=== PATIENT | female | born 1975 | race Caucasian/White ===

== ENCOUNTER → 2018-08-06 12:21 | Outpatient (CLI) | payer OTHER, SELFPAY ==
--- NOTE | 2018-08-06 | DI.MG.S_ITS ---
BILATERAL DIGITAL SCREENING MAMMOGRAM 3D/2D WITH CAD: 08/06/2018 CLINICAL: Routine screening. Comparison is made to exams dated: 03/13/2017 mammogram and 03/05/2016 mammogram - [facility]. The tissue of both breasts is heterogeneously dense. This may lower the sensitivity of mammography. Current study was also evaluated with a Computer Aided Detection (CAD) system. No significant masses, calcifications, or other findings are seen in either breast. There has been no significant interval change. IMPRESSION: NEGATIVE There is no mammographic evidence of malignancy. A 1 year screening mammogram is recommended. This exam was interpreted at Station ID: [id number]. NOTE: For mammograms, a report in lay terms will be sent to the patient. Approximately 15% of breast malignancies will not be visualized mammographically. In the management of a palpable breast mass, a negative mammogram must not discourage biopsy of a clinically suspicious lesion. Electronically Signed By: Tima curtis/aminata:08/08/2018 20:59:06 letter sent: Normal Exam ACR BI-RADS Category 1: Negative 3341F
== END ==
PROVIDERS: PCP Family Medicine; Visit Provider Family Medicine
DX: Z12.31 Encounter for screening mammogram for malignant neoplasm of breast (principal)
CPT/HCPCS: 77063; 77067

== ENCOUNTER → 2019-08-23 15:57 | Outpatient (CLI) | payer OTHER, SELFPAY ==
[2019-08-23 16:57] LABS: Add Manual Diff / Slide Review NO; Basophils Absolute Auto 100 /uL (0-100); Basophils Percent Auto 1.1 % (0-2); Eosinophils Absolute Auto 0 /uL (0-450); Eosinophils Percent Auto 0.5 % (2-4); Hematocrit 40.7 % (36-46); Hemoglobin 13.6 g/dL (12.0-16.0); Lymphocytes Absolute Auto 1700 /uL (1100-4500); Lymphocytes Percent Auto 20.6 % (25-40); Mean Corpuscular HGB Conc 33.4 % (30-36); Mean Corpuscular Hemoglobin 29.9 PG (26-34); Mean Corpuscular Volume 89.6 fL (80-100); Monocytes Absolute Auto 500 /uL (0-900); Monocytes Percent Auto 6.4 % (3-14); Neutrophils Absolute Auto 5800 /uL (1500-7000); Neutrophils Percent Auto 71.4 % (50-75); Platelet Count 283 X10^3/uL (150-400); Red Blood Cell Count 4.54 X10^6/uL (4.0-5.2); Red Cell Distribution Width 13.4 % (11.6-14.8); White Blood Cell Count 8.1 X10^3/uL (4.5-11.0)
[2019-08-23 16:59] LABS: Alanine Aminotransferase 12 IU/L (9-52); Albumin 4.7 g/dL (3.5-5.0); Albumin Globulin Ratio 1.2 (1.0-2.8); Alkaline Phosphatase 63 U/L (38-126); Aspartate Aminotransferase 24 IU/L (14-36); BUN Creatinine Ratio 17.1 (6-22); Bilirubin Total 0.4 mg/dL (0.2-1.3); Blood Urea Nitrogen 12 mg/dL (7-17); Calcium 9.3 mg/dL (8.4-10.2); Carbon Dioxide 26 mmol/L (22-32); Chloride 104 mmol/L (98-107); Creatine Kinase 76 U/L (30-135); Estimated Glomerular Filt Rate > 60.0 mL/min (>60); Globulin 3.8 g/dL (1.7-4.1); Glucose 92 mg/dL (70-100); Lipase 94 U/L (23-300); Sodium 140 mmol/L (137-145); Total Protein 8.5 g/dL (6.3-8.2)
[2019-08-23 17:11] LABS: HEMOLYSIS < 15 (0-50)
[2019-08-23 17:15] LABS: C-Reactive Protein Quant < 0.5 mg/dL (<1.0)
[2019-08-23 17:41] LABS: Erythrocyte Sedimentation Rate 4 MM/HR (0-20)
[2019-08-23 18:54] LABS: Rheumatoid Factor < 8.6 IU/mL (<12.0)
[2019-08-25 17:38] LABS: Urea Breath Test >18YRS NOT DETECTED
[2019-08-27 09:35] LABS: ANA Screen, IFA NEGATIVE (NEGATIVE)
== END ==
PROVIDERS: PCP Family Medicine; Visit Provider Family Medicine
DX: R10.13 Epigastric pain (principal); I73.00 Raynaud's syndrome without gangrene
CPT/HCPCS: 36415; 80053; 82550; 83013; 83690; 84443; 85025; 85651; 86038; 86140; 86430

== ENCOUNTER → 2019-08-25 10:43 | Outpatient (CLI) | payer OTHER, SELFPAY ==
--- NOTE | 2019-08-25 10:45 | DI.US.S_ITS ---
PROCEDURE: US ABDOMEN LIMITED INDICATIONS: EPIG ABD PAIN, PRIOR HX ABN HIDA TECHNIQUE: Real-time focused scanning was performed of the abdomen, with image documentation. COMPARISON: None. FINDINGS: Visualized liver demonstrates normal size and echotexture. Gallbladder is normal. No gallstones. No gallbladder wall thickening, pericholecystic fluid or sonographic Haddad's sign. Common bile duct measures a 3.8 mm in diameter, which is normal. Visualized pancreas is normal. IMPRESSION: Normal limited abdominal ultrasound exam. A cause for epigastric pain is not identified. Dictated by: Shaylee Flores M.D. on 08/25/2019 at 11:40 Approved by: Shaylee Flores M.D. on 08/25/2019 at 11:41
== END ==
PROVIDERS: PCP Family Medicine; Visit Provider Family Medicine
DX: R10.13 Epigastric pain (principal)
CPT/HCPCS: 76705

== ENCOUNTER → 2019-08-25 16:31 | Outpatient (CLI) | payer OTHER, SELFPAY ==
--- NOTE | 2019-08-25 16:32 | DI.MG.S_ITS ---
BILATERAL DIGITAL SCREENING MAMMOGRAM 3D/2D WITH CAD: 08/25/2019 CLINICAL: Routine screening. Comparison is made to exams dated: 08/06/2018 mammogram, 03/13/2017 mammogram, 03/05/2016 mammogram, and 03/12/2016 mammogram - [facility]. The tissue of both breasts is heterogeneously dense. This may lower the sensitivity of mammography. Current study was also evaluated with a Computer Aided Detection (CAD) system. No significant masses, calcifications, or other findings are seen in either breast. There has been no significant interval change. IMPRESSION: NEGATIVE There is no mammographic evidence of malignancy. A 1 year screening mammogram is recommended. This exam was interpreted at Station ID: [id number]. NOTE: For mammograms, a report in lay terms will be sent to the patient. Approximately 15% of breast malignancies will not be visualized mammographically. In the management of a palpable breast mass, a negative mammogram must not discourage biopsy of a clinically suspicious lesion. Electronically Signed By: Tima curtis/aminata:08/25/2019 17:24:34 letter sent: Normal Exam ACR BI-RADS Category 1: Negative 3341F
== END ==
PROVIDERS: PCP Family Medicine; Visit Provider Family Medicine
DX: Z12.31 Encounter for screening mammogram for malignant neoplasm of breast (principal)
CPT/HCPCS: 77063; 77067

== ENCOUNTER → 2019-10-12 16:12 | Outpatient (CLI) | payer OTHER, SELFPAY | PROVIDERS: PCP Family Medicine; Visit Provider Family Medicine | DX: R25.2 Cramp and spasm (principal) | CPT/HCPCS: 36415; 83735 ==

== ENCOUNTER → 2019-12-30 07:05 | Outpatient (CLI) | payer OTHER, SELFPAY ==
[2019-12-30 08:03] LABS: Cholesterol 221 mg/dL (140-199); Glucose 92 mg/dL (70-100); HDL Cholesterol 54 mg/dL (40-60); LDL Cholesterol Calculated 155 mg/dL (<100); Triglycerides 60 mg/dL (35-150)
== END ==
PROVIDERS: PCP Family Medicine; Visit Provider Family Medicine
DX: Z13.220 Encounter for screening for lipoid disorders (principal); Z13.1 Encounter for screening for diabetes mellitus
CPT/HCPCS: 36415; 80061; 82947

== ENCOUNTER → 2020-10-09 17:28 | Outpatient (CLI) | payer OTHER, SELFPAY ==
--- NOTE | 2020-10-09 | DI.MG.S_ITS ---
BILATERAL DIGITAL SCREENING MAMMOGRAM 3D/2D WITH CAD: 10/09/2020 CLINICAL: Routine screening. Comparison is made to exams dated: 08/25/2019 mammogram, 08/06/2018 mammogram, and 03/13/2017 mammogram - [facility]. The tissue of both breasts is heterogeneously dense. This may lower the sensitivity of mammography. Current study was also evaluated with a Computer Aided Detection (CAD) system. There are new linear fine calcifications in the right breast at 11 o'clock middle depth. No other significant masses, calcifications, or other findings are seen in either breast. IMPRESSION: INCOMPLETE: NEEDS ADDITIONAL IMAGING EVALUATION The new linear fine calcifications in the right breast are indeterminate. Magnification, lateromedial, and additional views are recommended. This exam was interpreted at Station ID: [id number]. NOTE: For mammograms, a report in lay terms will be sent to the patient. Approximately 15% of breast malignancies will not be visualized mammographically. In the management of a palpable breast mass, a negative mammogram must not discourage biopsy of a clinically suspicious lesion. Electronically Signed By: Chong resendez/aminata:10/10/2020 08:03:17 letter sent: Additional Imaging Needed ACR BI-RADS Category 0: Incomplete 3340F
== END ==
PROVIDERS: PCP Family Medicine; Referring Provider Family Medicine; Visit Provider Family Medicine
DX: Z12.31 Encounter for screening mammogram for malignant neoplasm of breast (principal)
CPT/HCPCS: 77063; 77067

== ENCOUNTER → 2020-11-05 14:01 | Outpatient (CLI) | payer OTHER, SELFPAY ==
--- NOTE | 2020-11-05 14:02 | DI.MG.S_ITS ---
UNILATERAL RIGHT DIGITAL DIAGNOSTIC MAMMOGRAM 3D/2D WITH ADDITIONAL VIEWS: 11/05/2020 CLINICAL: Additional evaluation requested from prior study. Comparison is made to exams dated: 10/09/2020 mammogram, 08/25/2019 mammogram, and 08/06/2018 mammogram - [facility]. The tissue of right breast is heterogeneously dense. This may lower the sensitivity of mammography. The benign calcification in the right breast at 11 o'clock middle depth is no longer seen. No other significant masses or calcifications are seen in the breast. IMPRESSION: BENIGN There is no mammographic evidence of malignancy. Return to annual mammogram screening schedule is recommended. This exam was interpreted at Station ID: [id number]. NOTE: For mammograms, a report in lay terms will be sent to the patient. Approximately 15% of breast malignancies will not be visualized mammographically. In the management of a palpable breast mass, a negative mammogram must not discourage biopsy of a clinically suspicious lesion. Electronically Signed By: Eduardo Nunn acr/:11/05/2020 14:40:44 letter sent: Normal Exam ACR BI-RADS Category 2: Benign Finding(s) 3342F
== END ==
PROVIDERS: PCP Family Medicine; Referring Provider Family Medicine; Visit Provider Family Medicine
DX: R92.8 Other abnormal and inconclusive findings on diagnostic imaging of breast (principal); R92.1 Mammographic calcification found on diagnostic imaging of breast
CPT/HCPCS: 77065; G0279

== ENCOUNTER → 2021-04-18 08:08 | Outpatient (CLI) | payer OTHER, SELFPAY ==
[2021-04-18 08:53] LABS: Cholesterol 191 mg/dL (140-199); Glucose 93 mg/dL (70-100); HDL Cholesterol 58 mg/dL (40-60); LDL Cholesterol Calculated 118 mg/dL (<100); Triglycerides 77 mg/dL (35-150)
== END ==
PROVIDERS: PCP Family Medicine; Referring Provider Family Medicine; Visit Provider Family Medicine
DX: Z13.1 Encounter for screening for diabetes mellitus (principal); Z13.220 Encounter for screening for lipoid disorders
CPT/HCPCS: 36415; 80061; 82947

== ENCOUNTER → 2021-10-14 14:45 | Outpatient (CLI) | payer OTHER, SELFPAY ==
--- NOTE | 2021-10-14 | DI.MG.S_ITS ---
BILATERAL DIGITAL SCREENING MAMMOGRAM 3D/2D WITH CAD: 10/14/2021 CLINICAL: Routine screening. Comparison is made to exams dated: 11/05/2020 mammogram, 10/09/2020 mammogram, and 08/25/2019 mammogram - [facility]. The tissue of both breasts is heterogeneously dense. This may lower the sensitivity of mammography. Current study was also evaluated with a Computer Aided Detection (CAD) system. No significant masses, calcifications, or other findings are seen in either breast. There has been no significant interval change. IMPRESSION: NEGATIVE There is no mammographic evidence of malignancy. A 1 year screening mammogram is recommended. This exam was interpreted at Station ID: [id number]. NOTE: For mammograms, a report in lay terms will be sent to the patient. Approximately 15% of breast malignancies will not be visualized mammographically. In the management of a palpable breast mass, a negative mammogram must not discourage biopsy of a clinically suspicious lesion. Electronically Signed By: Eduardo Nunn acr/penrad:10/14/2021 17:03:00 letter sent: Normal Exam ACR BI-RADS Category 1: Negative 3341F
== END ==
PROVIDERS: PCP Family Medicine; Referring Provider Family Medicine; Visit Provider Family Medicine
DX: Z12.31 Encounter for screening mammogram for malignant neoplasm of breast (principal)
CPT/HCPCS: 77063; 77067

== ENCOUNTER → 2022-11-07 07:25 | Outpatient (CLI) | payer OTHER, SELFPAY ==
--- NOTE | 2022-11-07 07:27 | DI.MG.S_ITS ---
BILATERAL DIGITAL SCREENING MAMMOGRAM 3D/2D WITH CAD: 11/07/2022 CLINICAL: Routine screening. Comparison is made to exams dated: 10/14/2021 mammogram, 11/05/2020 mammogram, 10/09/2020 mammogram, and 08/25/2019 mammogram - [facility]. Both breasts are heterogeneously dense, which may obscure small masses (category c / 51-75% glandular tissue). Current study was also evaluated with a Computer Aided Detection (CAD) system. No significant masses, calcifications, or other findings are seen in either breast. There has been no significant interval change. IMPRESSION: NEGATIVE There is no mammographic evidence of malignancy. A 1 year screening mammogram is recommended. Based on the Tyrer Cuzick model (a risk assessment model) the patient's lifetime risk is 8.9% and her 10 year risk is 2.0%. According to the ACR, ACS, and NCCN guidelines, an annual breast MRI exam along with mammogram is recommended if the patient's lifetime risk is 20% or greater. This exam was interpreted at Station ID: [id number]. NOTE: For mammograms, a report in lay terms will be sent to the patient. Approximately 15% of breast malignancies will not be visualized mammographically. In the management of a palpable breast mass, a negative mammogram must not discourage biopsy of a clinically suspicious lesion. Electronically Signed By: Dionne villavicencio/aminata:11/07/2022 12:55:30 letter sent: Normal Exam ACR BI-RADS Category 1: Negative 3341F
== END ==
PROVIDERS: PCP Family Medicine; Referring Provider Family Medicine; Visit Provider Family Medicine
DX: Z12.31 Encounter for screening mammogram for malignant neoplasm of breast (principal)
CPT/HCPCS: 77063; 77067

== ENCOUNTER → 2023-07-29 15:06 | Outpatient (CLI) | payer OTHER, SELFPAY ==
--- NOTE | 2023-07-29 15:07 | DI.RAD.S_ITS ---
PROCEDURE: XR THORACIC SPINE 3V INDICATIONS: mid back pain TECHNIQUE: 3 views of the thoracic spine were acquired. COMPARISON: None. FINDINGS: Bones: No fractures or dislocations. No suspicious bony lesions. There is 12.7 degree dextroscoliosis with the apex at T8-T9. Mild secondary levoscoliosis in the upper lumbar spine. Mild degenerative disc disease throughout the thoracic spine and upper lumbar spine. 11 pairs of ribs are noted, and appear intact where visualized. Soft tissues: No paravertebral stripe thickening. IMPRESSION: 1. Mild degenerative disc disease. 2. Scoliosis. 3. 11 pairs of ribs are present suggesting transitional anatomy. Dictated by: Shaylee Flores M.D. on 07/29/2023 at 15:40 Approved by: Shaylee Flores M.D. on 07/29/2023 at 15:42
== END ==
PROVIDERS: PCP Family Medicine; Referring Provider Family Medicine; Visit Provider Family Medicine
DX: M51.34 Other intervertebral disc degeneration, thoracic region (principal); M41.9 Scoliosis, unspecified
CPT/HCPCS: 72072

== ENCOUNTER 2023-07-30 09:00 | Emergency (ER) | payer OTHER, SELFPAY ==
[2023-07-30] VITALS (9 sets, daily range): BP systolic 95–125; BP diastolic 61–71; PULSE 57–78; RESP 15–24; TEMP 36.7; O2SAT 99–100; BMI 23.1
--- NOTE | 2023-07-30 09:16 | PC.NURSE ---
patient placed in room 10, spoke with provider immediately about patient's reaction and time line of events.
--- NOTE | 2023-07-30 09:35 | DI.RAD.S_ITS ---
PROCEDURE: XR CHEST 1V INDICATIONS: chest pain TECHNIQUE: One view of the chest was acquired. COMPARISON: None. FINDINGS: Surgical changes and devices: None. Lungs and pleura: Lungs are clear. No pleural effusions or pneumothorax. Mediastinum: Mediastinal contours appear normal. Heart size is normal. Bones and chest wall: No suspicious bony lesions. Overlying soft tissues appear unremarkable. IMPRESSION: Portable chest within normal limits for age. Dictated by: Val Guy M.D. on 07/30/2023 at 12:05 Approved by: Val Guy M.D. on 07/30/2023 at 12:05
--- NOTE | 2023-07-30 09:46 | ED_ITS ---
HPI - Allergic Reaction General Chief complaint: Allergic Reaction Stated complaint: reaction to meds Time Seen by Provider: 07/30/23 09:25 Source: patient Mode of arrival: Ambulatory History of Present Illness HPI narrative: Patient here with . Complains of oral lesion/headache/bilateral eye swelling/chest pain/shortness of breath. Patient is seen by primary care yesterday for routine wellness check. Was prescribed fluoxetine. This is new for her. Patient took medication at 5:00 p.m. last night. A 6:00 p.m. she noticed a bump/blister at the anterior midline upper maxilla mucosa. This has resolved. At 3:00 a.m. she awoke with headache chest discomfort shortness of breath. No rash. Patient in no distress at this time patient denies any oral swelling at this time. Patient has low heart score. No primary family members with coronary disease. Patient does not smoke. Does not take blood pressure medication or cholesterol medication. No diabetes. Related Data Home Medications Medication Instructions Recorded Confirmed tumeric PO 12/27/19 07/29/23 Previous Rx's Medication Instructions Recorded valacyclovir 1 gram tablet 2,000 mg PO BID #4 tabs 06/24/23 fluoxetine 20 mg capsule 20 mg PO DAILY #30 caps 07/29/23 Allergies Allergy/AdvReac Type Severity Reaction Status Date / Time No Known Drug Allergies Allergy Verified 07/29/23 14:02 Review of Systems Review of Systems ROS Unobtainable: All systems reviewed & are unremarkable except as noted in HPI and below Patient History Medical History (Updated 08/04/23 @ 08:57 by Sammi Barton MD) Chicken pox Herpes Mumps Raynaud phenomenon Scoliosis Surgical History Anesthesia History of oral surgery Family History Grandfather Stroke Grandmother Heart disease Social History Smoking Status: Never smoker Smoking Status: Never smoker alcohol intake frequency: holidays/special occasions only Substance Use Type: does not use Exam Narrative Exam Narrative: GENERAL: in no distress, not toxic not dyspneic HEAD: Normocephalic. EYES: Pupils equal round ENT: Mucous membranes moist. No intraoral lesion or lip lesion or tongue lesion or vesicles or rash. NECK: Trachea midline. CARDIOVASCULAR: Regular rate and rhythm RESPIRATORY: Clear to auscultation. Breath sounds equal bilaterally. No wheezes, rales, or rhonchi. GASTROINTESTINAL: Abdomen soft, non-tender EXTREMITIES: No gross deformities. BACK: No flank tenderness. NEURO: AOx4. SKIN: Warm and dry, no rash on face or arms, denies any pruritus/itching PSYCH: Not anxious, is cooperative Initial Vital Signs Initial Vital Signs: Vital Signs Temperature 98.1 F 07/30/23 09:03 Pulse Rate 78 07/30/23 09:03 Respiratory Rate 16 07/30/23 09:03 Blood Pressure 117/71 07/30/23 09:03 Pulse Oximetry 100 07/30/23 09:03 Oxygen Delivery Method Room Air 07/30/23 09:03 Scores HEART Score Heart Score history: Slightly Suspicious Heart Score EKG: Normal Heart Score Age: 45-64 years old Heart Score risk factors: No known risk factors Heart Score troponin: < or = to normal limit Heart Score Total: 1 Course Orders Ordered: ED Orders 07/30/23 09:35 XR chest 1V Stat EKG-12 Lead Stat 07/30/23 09:57 Complete Blood Count AUTO DIFF Stat Comprehensive Metabolic Panel Stat Troponin & CK Cardiac Panel Stat Vital Signs Vital signs: Vital Signs - 8 hr 07/30/23 09:03 07/30/23 09:59 07/30/23 09:59 Temperature 98.1 F Pulse Rate 78 70 Respiratory Rate 16 Blood Pressure 117/71 125/65 Pulse Oximetry 100 99 Oxygen Delivery Method Room Air 07/30/23 10:00 07/30/23 10:00 07/30/23 10:30 Temperature Pulse Rate 71 Respiratory Rate Blood Pressure 114/70 106/61 Pulse Oximetry 100 Oxygen Delivery Method 07/30/23 10:30 07/30/23 11:00 07/30/23 11:00 Temperature Pulse Rate 62 57 L Respiratory Rate 20 15 Blood Pressure 97/61 Pulse Oximetry 99 99 Oxygen Delivery Method 07/30/23 11:30 07/30/23 11:30 07/30/23 12:00 Temperature Pulse Rate 61 59 L Respiratory Rate 21 24 Blood Pressure 95/64 Pulse Oximetry 99 100 Oxygen Delivery Method Room Air 07/30/23 12:01 07/30/23 12:01 Temperature Pulse Rate 68 Respiratory Rate Blood Pressure 110/65 Pulse Oximetry 100 Oxygen Delivery Method Room Air MDM - Allergic Reaction Lab Data 07/30/23 09:57 07/30/23 09:57 Labs: Lab Results 07/30/23 07/30/23 Range/Units 09:57 09:57 WBC 6.1 (4.5-11.0) X10^3/uL RBC 4.43 (4.0-5.2) X10^6/uL Hgb 12.9 (12.0-16.0) g/dL Hct 38.3 (36-46) % MCV 86.6 (80-100) fL MCH 29.2 (26-34) PG MCHC 33.7 (30-36) % RDW 14.3 (11.6-14.8) % Plt Count 269 (150-400) X10^3/uL Neut % (Auto) 67.2 (50-75) % Lymph % (Auto) 22.6 L (25-40) % Montgomery % (Auto) 7.5 (3-14) % Eos % (Auto) 1.4 L (2-4) % Baso % (Auto) 1.3 (0-2) % Neut # (Auto) 4100 (4187-2553) /uL Lymph # (Auto) 1400 (4162-1314) /uL Montgomery # (Auto) 500 (0-900) /uL Eos # (Auto) 100 (0-450) /uL Baso # (Auto) 100 (0-100) /uL Sodium 138 (137-145) mmol/L Potassium 4.4 (3.4-5.1) mmol/L Chloride 104 (98-107) mmol/L Carbon Dioxide 27 (22-32) mmol/L BUN 10 (7-17) mg/dL Creatinine 0.70 (0.52-1.04) mg/dL Estimated GFR > 60 (>60) mL/min BUN/Creatinine Ratio 14.3 (6-22) Glucose 93 (70-100) mg/dL Calcium 9.2 (8.4-10.2) mg/dL Total Bilirubin 0.6 (0.2-1.3) mg/dL AST 26 (14-36) IU/L ALT 20 (<35) IU/L Alkaline Phosphatase 67 (38-126) U/L Total Creatine Kinase 86 (30-135) U/L Troponin I < 0.012 (0.01-0.034) ng/mL Total Protein 7.6 (6.3-8.2) g/dL Albumin 4.4 (3.5-5.0) g/dL Globulin 3.2 (1.7-4.1) g/dL Albumin/Globulin Ratio 1.4 (1.0-2.8) Imaging Data Chest x-ray: Radiologist's Impression: [address] [address] XRay Report Signed Patient: Sangeeta Souza MR#: [id number] : 1975 Acct:[id number] Age/Sex: 48 / F Date of Service: 07/30/23 Loc: ED Accession Number: [id number] ?? Procedure: XR chest 1V Ordering Provider: Gaurang Barragan MD PROCEDURE:? XR CHEST 1V ? INDICATIONS:? chest pain ? TECHNIQUE:? One view of the chest was acquired.? ? COMPARISON:? None. ? FINDINGS:? ? Surgical changes and devices:? None.? ? Lungs and pleura:? Lungs are clear.? No pleural effusions or pneumothorax.? ? Mediastinum:? Mediastinal contours appear normal.? Heart size is normal.? ? Bones and chest wall:? No suspicious bony lesions.? Overlying soft tissues appear unremarkable.? ? ? IMPRESSION:? Portable chest within normal limits for age. ? ? Dictated by: Val Guy M.D. on 07/30/2023 at 12:05 ? ? Approved by: Val Guy M.D. on 07/30/2023 at 12:05 ? [facility] Narrative Medical decision making narrative: Patient here with . Complains of oral lesion/headache/bilateral eye swelling/chest pain/shortness of breath. Patient is seen by primary care yesterday for routine wellness check. Was prescribed fluoxetine. This is new for her. Patient took medication at 5:00 p.m. last night. A 6:00 p.m. she noticed a bump/blister at the anterior midline upper maxilla mucosa. This has resolved. At 3:00 a.m. she awoke with headache chest discomfort shortness of breath. No rash. Patient in no distress at this time patient denies any oral swelling at this time. Patient has low heart score. No primary family members with coronary disease. Patient does not smoke. Does not take blood pressure medication or cholesterol medication. No diabetes. After history and exam CBC CMP troponin EKG chest x-ray [facility] CC: Oral lesion chest pain headache eye swelling Complicating co-morbidities: New medication started yesterday Data collected from: Patient and Medical records reviewed: Office visit primary care doctor meli yesterday Differential considered: Includes but not limited to medication reaction Apdilla Ed anxiety angina [place] STEMI non-STEMI Exam documented above, pertinent findings include: Normal heart sounds, no oral lesions Lab Test results independently reviewed as above. Pertinent findings: WBC 6.1 hemoglobin 12.9 sodium 138 potassium 4.4 troponin less than 0.012 Independently reviewed EKG normal sinus rhythm rate [address] elevation or depression Imaging studies independently reviewed: Chest x-ray no acute finding Consultations: 1:44 p.m.. Spoke with Eliza on-call for Dr. Barton, patient can be discharged home. Follow up with primary care. Agrees with treatment plan. Treatments: None required at this time. Re-evaluations: 12:46 p.m.. Reviewed results with patient. Patient asympto matic at this time. No chest pain no shortness of breath. No headache. Results are reassuring. Likely allergic reaction. She will not continue fluoxetine. I have reviewed with primary care on-call and agrees for follow up with her physician for different medication Discussion: Appropriate for discharge home. Laboratory studies imaging EKG are reassuring. Patient has low heart score. Likely not cardiac origin. Return precautions reviewed with her. I did speak with primary care provider services for follow-up and re-evaluation. Diagnosis: Medication reaction Discharge Plan Departure Patient Disposition: Home Clinical Impression: Adverse reaction to drug Instructions: DI for Adverse Drug Reaction -- Allergic Activity Restrictions/Additional Instructions: Please see your family doctor for re-evaluation and different medication treatment. Do not continue fluoxetine. Laboratory studies imaging EKG blood work are reassuring today. Return if worse if any questions or concerns. Prescriptions: No Action tumeric PO fluoxetine 20 mg capsule 20 mg PO DAILY Qty: 30 2RF valacyclovir 1 gram tablet 2,000 mg PO BID Qty: 4 3RF Referrals: Sammi Barton MD [Primary Care Provider] - Stand Alone Forms: Patient Portal/API
--- NOTE | 2023-07-30 10:01 | PC.NURSE ---
called and verified with lab. out patient labs patient has ordered are glucose and lipid panel. 12 hours fasting is required. spoke with lab about patient last intake was 2230 yesterday. was told this fine and to send down a green top for this order. extra tube obtained during regular ER lab draw.
[2023-07-30 10:13] LABS: Add Manual Diff / Slide Review NO; Basophils Absolute Auto 100 /uL (0-100); Basophils Percent Auto 1.3 % (0-2); Eosinophils Absolute Auto 100 /uL (0-450); Eosinophils Percent Auto 1.4 % (2-4); Hematocrit 38.3 % (36-46); Hemoglobin 12.9 g/dL (12.0-16.0); Lymphocytes Absolute Auto 1400 /uL (1100-4500); Lymphocytes Percent Auto 22.6 % (25-40); Mean Corpuscular HGB Conc 33.7 % (30-36); Mean Corpuscular Hemoglobin 29.2 PG (26-34); Mean Corpuscular Volume 86.6 fL (80-100); Monocytes Absolute Auto 500 /uL (0-900); Monocytes Percent Auto 7.5 % (3-14); Neutrophils Absolute Auto 4100 /uL (1500-7000); Neutrophils Percent Auto 67.2 % (50-75); Platelet Count 269 X10^3/uL (150-400); Red Blood Cell Count 4.43 X10^6/uL (4.0-5.2); Red Cell Distribution Width 14.3 % (11.6-14.8); White Blood Cell Count 6.1 X10^3/uL (4.5-11.0)
[2023-07-30 10:25] LABS: Alanine Aminotransferase 20 IU/L (<35); Albumin 4.4 g/dL (3.5-5.0); Albumin Globulin Ratio 1.4 (1.0-2.8); Alkaline Phosphatase 67 U/L (38-126); Aspartate Aminotransferase 26 IU/L (14-36); BUN Creatinine Ratio 14.3 (6-22); Bilirubin Total 0.6 mg/dL (0.2-1.3); Blood Urea Nitrogen 10 mg/dL (7-17); Calcium 9.2 mg/dL (8.4-10.2); Carbon Dioxide 27 mmol/L (22-32); Chloride 104 mmol/L (98-107); Creatine Kinase 86 U/L (30-135); Estimated Glomerular Filt Rate > 60 mL/min (>60); Globulin 3.2 g/dL (1.7-4.1); Glucose 93 mg/dL (70-100); HEMOLYSIS < 15 (0-50); Potassium 4.4 mmol/L (3.4-5.1); Sodium 138 mmol/L (137-145); Total Protein 7.6 g/dL (6.3-8.2)
[2023-07-30 10:36] LABS: Troponin I < 0.012 ng/mL (0.01-0.034)
--- NOTE | 2023-07-30 11:42 | PC.NURSE ---
Patient states she just want to sleep. She denied having worsening itchiness, SOB, swelling of her tongue or throat. No further concerns at this time.
== END 2023-07-30 13:54 | disposition home or self-care (01) ==
PROVIDERS: Emergency Provider Emergency Medicine; PCP Family Medicine
DX: R51.9 Headache, unspecified (principal); R07.9 Chest pain, unspecified; R06.02 Shortness of breath; K13.70 Unspecified lesions of oral mucosa; T43.225A Adverse effect of selective serotonin reuptake inhibitors, initial encounter; Z13.9 Encounter for screening, unspecified
CPT/HCPCS: 36415; 71045; 80053; 80061; 82550; 82947; 84484; 85025; 93005; 99283

== ENCOUNTER → 2023-07-30 09:43 | Outpatient (CLI) | payer OTHER, SELFPAY ==
[2023-07-30 10:24] LABS: Cholesterol 190 mg/dL (140-199); Glucose 94 mg/dL (70-100); HDL Cholesterol 53 mg/dL (40-60); LDL Cholesterol Calculated 125 mg/dL (<100); Triglycerides 58 mg/dL (35-150)
== END ==
PROVIDERS: PCP Family Medicine; Referring Provider Family Medicine; Visit Provider Family Medicine
DX: Z13.9 Encounter for screening, unspecified (principal)
CPT/HCPCS: 80061; 82947

== ENCOUNTER → 2023-09-08 09:42 | Outpatient (CLI) | payer OTHER, SELFPAY ==
[2023-09-08 11:15] LABS: Follicle Stimulating Hormone 120 mIU/mL; Luteinizing Hormone 70.7 mIU/mL
[2023-09-08 11:30] LABS: Estradiol, Total 18.8 pg/mL
== END ==
PROVIDERS: PCP Family Medicine; Referring Provider Family Medicine; Visit Provider Family Medicine
DX: Z78.0 Asymptomatic menopausal state (principal)
CPT/HCPCS: 36415; 82670; 83001; 83002

== ENCOUNTER → 2023-10-01 | Outpatient (CLI) | payer OTHER, SELFPAY | LOC: CAR 14:51 | PROVIDERS: PCP Family Medicine; Referring Provider Family Medicine; Visit Provider Family Medicine | DX: R42 Dizziness and giddiness (principal) ==

== ENCOUNTER → 2023-11-03 07:58 | Outpatient (CLI) | payer OTHER, SELFPAY ==
--- NOTE | 2023-11-03 07:59 | DI.ECHO.S_ITS ---
[facility]---------+ [facility] +---------+ : : [address] : : : : [id number] : : : : Phone: [phone]+ Echocardiogram Report + + :Name: GABE GARNER Study Date: 11/03/2023 Height: 66 in : :[facility] ReadingLocation: Weight: 128 lb : : Gender: Female BSA: 1.7 m2 : :: 1975 Age: 48 yrs BP: 117/74 mmHg: :Reason For Study: DIZZINESS AND GIDDINESS : :Ordering Physician: SANTOSH, : :JAKI Performed By: Lita Buenrostro : :Referring: JAKI FROST : + + Interpretation Summary The ejection fraction is estimated to be 60-65%. Diastolic parameters suggest probable normal left ventricular diastolic function and normal filling pressures. The right ventricle is normal in size and function. No significant valvular abnormalities. Pulmonary artery pressures cannot be estimated because of the lack of a measurable TR jet velocity but the IVC suggests a CVP of around 3 mmHg. Procedure: A two-dimensional transthoracic echocardiogram with color flow and Doppler was performed. The study quality was technically adequate. There is no prior echocardiogram noted for this patient. The patient was in sinus rhythm with heart rates between 66-75 bpm during the exam. Left Ventricle: The left ventricle is normal in size and wall thickness. The ejection fraction is estimated to be 60-65%. Diastolic parameters suggest probable normal left ventricular diastolic function and normal filling pressures. Right Ventricle: The right ventricle is normal in size and function. Atria: The left atrial size is normal. Right atrial size is normal. There is no Doppler evidence for an interatrial shunt. Mitral Valve: The mitral valve is normal in structure and function. There is trace mitral regurgitation. Aortic Valve: The aortic valve is trileaflet. The aortic valve opens well. There is no aortic valve stenosis. No aortic regurgitation is present. Tricuspid Valve: The tricuspid valve is normal in structure and function. There is trace tricuspid regurgitation. Pulmonary artery pressures cannot be estimated because of the lack of a measurable TR jet velocity but the IVC suggests a CVP of around 3 mmHg. Pulmonic Valve: The pulmonic valve leaflets are thin and pliable; valve motion is normal. There is a trace or physiologic amount of pulmonic regurgitation. Great Vessels: The aortic root is normal size. The dimensions of the ascending aorta are normal. The IVC is of normal diameter and collapses greater than 50% with a sniff. This suggests a low right atrial pressure of 3 mm Hg. Pericardium/ Pleura There is a trivial pericardial effusion noted. There is no pleural effusion. MMode/2D Measurements & Calculations LVIDd: 4.3 cm LVOT diam: 2.0 cm LVIDs: 2.9 cm Ao root diam: 3.1 cm FS: 33.9 % asc Aorta Diam: 3.0 cm EPSS: 0.38 cm Ao Arch Diam (Prox Trans): 1.9 cm IVSd: 0.82 cm LVPWd: 0.72 cm LV peña. diameter/BSA (cm/m^2): 2.6 LV sys. diameter/BSA (cm/m^2): 1.7 LA A2 area: 16.1 cm2 RA long axis: 4.6 cm LA A4 area: 15.3 cm2 RA area: 14.0 cm2 LA length (vol): 4.3 cm RA vol: 36.0 ml LA vol: 49.2 ml RA : 21.8 ml/m2 LA vol index: 29.8 ml/m2 IVC diam: 1.6 cm RVD1 (basal): 3.7 cm RVD2 (mid): 2.9 cm TAPSE: 2.0 cm Doppler Measurements & Calculations Ao V2 max: 121.4 cm/sec LVOT Max Enrrique: 93.7 cm/sec Ao V2 mean: 90.0 cm/sec LV V1 max P.5 mmHg Ao max P.9 mmHg LV V1 VTI: 21.7 cm Ao mean P.4 mmHg STEVEN(I,D): 2.5 cm2 Ao V2 VTI: 26.7 cm STEVEN(V,D): 2.4 cm2 sev ratio: 0.81 STEVEN indexed to BSA (cm^2/m^2): 1.5 MV E max enrrique: 94.7 cm/sec PA V2 max: 98.4 cm/sec MV A max enrrique: 65.9 cm/sec PA V2 mean: 65.5 cm/sec MV E/A: 1.4 PA mean P.0 mmHg Med Peak E' Enrrique: 9.9 cm/sec PA pr(Accel): 34.5 mmHg E/E' med: 9.5 Lat Peak E' Enrrique: 10.1 cm/sec E/E' lat: 9.3 E/e' average: 9.4 MV dec time: 0.20 sec SVLVOT): 66.2 ml Reading Physician:02:14 PM
== END ==
PROVIDERS: PCP Family Medicine; Referring Provider Family Medicine; Visit Provider Family Medicine
DX: R42 Dizziness and giddiness (principal)
CPT/HCPCS: 93306

== ENCOUNTER → 2023-11-04 16:09 | Outpatient (CLI) | payer OTHER, SELFPAY ==
--- NOTE | 2023-11-04 16:10 | DI.MG.S_ITS ---
BILATERAL DIGITAL SCREENING MAMMOGRAM 3D/2D WITH CAD: 11/04/2023 CLINICAL: Routine screening. Comparison is made to exams dated: 11/07/2022 mammogram, 10/14/2021 mammogram, and 11/05/2020 mammogram - [facility]. Both breasts are heterogeneously dense, which may obscure small masses (category c / 51-75% glandular tissue). Current study was also evaluated with a Computer Aided Detection (CAD) system. No significant masses, calcifications, or other findings are seen in either breast. IMPRESSION: NEGATIVE There is no mammographic evidence of malignancy. A 1 year screening mammogram is recommended. Based on the Tyrer Cuzick model (a risk assessment model) the patient's lifetime risk is 9.1% and her 10 year risk is 2.1%. According to the ACR, ACS, and NCCN guidelines, an annual breast MRI exam along with mammogram is recommended if the patient's lifetime risk is 20% or greater. This exam was interpreted at Station ID: [id number]. NOTE: For mammograms, a report in lay terms will be sent to the patient. Approximately 15% of breast malignancies will not be visualized mammographically. In the management of a palpable breast mass, a negative mammogram must not discourage biopsy of a clinically suspicious lesion. Electronically Signed By: Willow Vidal M.D., PH.D eb/penrad:11/05/2023 14:57:25 letter sent: Normal Exam ACR BI-RADS Category 1: Negative [id number]
== END ==
PROVIDERS: PCP Family Medicine; Referring Provider Family Medicine; Visit Provider Family Medicine
DX: Z12.31 Encounter for screening mammogram for malignant neoplasm of breast (principal)
CPT/HCPCS: 77063; 77067

== ENCOUNTER → 2024-09-22 07:06 | Outpatient (CLI) | payer OTHER, SELFPAY ==
[2024-09-22 08:46] LABS: Alanine Aminotransferase 30 IU/L (<35); Albumin 4.6 g/dL (3.5-5.0); Albumin Globulin Ratio 1.5 (1.0-2.8); Alkaline Phosphatase 83 U/L (38-126); Aspartate Aminotransferase 33 IU/L (14-36); BUN Creatinine Ratio 15.7 (6-22); Bilirubin Total 0.5 mg/dL (0.2-1.3); Blood Urea Nitrogen 13 mg/dL (7-17); Calcium 9.6 mg/dL (8.4-10.2); Carbon Dioxide 28 mmol/L (22-32); Chloride 105 mmol/L (98-107); Cholesterol 226 mg/dL (140-199); Estimated Glomerular Filt Rate > 60 mL/min (>60); Glucose 87 mg/dL (70-100); HDL Cholesterol 67 mg/dL (40-60); HEMOLYSIS < 15 (0-50); LDL Cholesterol Calculated 138 mg/dL (<100); Potassium 4.5 mmol/L (3.4-5.1); Sodium 140 mmol/L (137-145); Total Protein 7.6 g/dL (6.3-8.2); Triglycerides 104 mg/dL (35-150)
== END ==
PROVIDERS: PCP Family Medicine; Referring Provider Family Medicine; Visit Provider Family Medicine
DX: I73.00 Raynaud's syndrome without gangrene (principal); Z13.220 Encounter for screening for lipoid disorders
CPT/HCPCS: 36415; 80053; 80061

== ENCOUNTER → 2024-11-11 16:17 | Outpatient (CLI) | payer OTHER, SELFPAY ==
--- NOTE | 2024-11-11 16:17 | DI.MG.S_ITS ---
BILATERAL DIGITAL SCREENING MAMMOGRAM 3D/2D WITH CAD: 11/11/2024 CLINICAL: Routine screening. Comparison is made to exams dated: 11/04/2023 mammogram, 11/07/2022 mammogram, and 10/14/2021 mammogram - [facility]. The breasts are heterogeneously dense, which may obscure small masses (category c / 51-75% glandular tissue). Current study was also evaluated with a Computer Aided Detection (CAD) system. No significant masses, calcifications, or other findings are seen in either breast. There has been no significant interval change. IMPRESSION: NEGATIVE There is no mammographic evidence of malignancy. A 1 year screening mammogram is recommended. Based on the Tyrer Cuzick model (a risk assessment model) the patient's lifetime risk is 9.2% and her 10 year risk is 2.3%. According to the ACR, ACS, and NCCN guidelines, an annual breast MRI exam along with mammogram is recommended if the patient's lifetime risk is 20% or greater. This exam was interpreted at Station ID: [id number]. NOTE: For mammograms, a report in lay terms will be sent to the patient. Approximately 15% of breast malignancies will not be visualized mammographically. In the management of a palpable breast mass, a negative mammogram must not discourage biopsy of a clinically suspicious lesion. Electronically Signed By: Dionne [email or web address]/[email or web address]:11/11/2024 17:17:04 letter sent: Normal Exam ACR BI-RADS Category 1: Negative
== END ==
PROVIDERS: PCP Family Medicine; Referring Provider Family Medicine; Visit Provider Family Medicine
DX: Z12.31 Encounter for screening mammogram for malignant neoplasm of breast (principal); R92.333 Mammographic heterogeneous density, bilateral breasts
CPT/HCPCS: 77063; 77067